=== PATIENT | female | born 1955 | race African-American/Black ===

== ENCOUNTER 2025-05-10 18:11 | Emergency (ER) | payer OTHER, SELFPAY ==
--- NOTE | ~2025-05-10 | XR_ITS ---
EXAMINATION: XR foot LT min 3V DATE: 05/10/2025 19:54 INDICATION: Trauma 2 days ago. TECHNIQUE: 4 views were obtained. COMPARISON: None. FINDINGS: Acute transversely oriented fracture of the proximal fifth metatarsal bone. No other acute bony lesions of the foot are seen. 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 IMPRESSION: 1. Acute fracture of the proximal fifth metatarsal. 2. 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 Reviewed, dictated and finalized at location T. GN ENGINEERING TECHNICIAN
--- OUTSIDE RECORDS SUMMARY | 2025-05-10 18:26 | XMS_ITS | Clinical Summary ---
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 Gender Identity Not on file Sexual Orientation Not on file Plan of Treatment Health Maintenance Due Date Last Done Comments Hepatitis C Virus (HCV) Screening 1955 TdaP Immunization 1955 Cologuard 11/24/2000 Colonoscopy 11/24/2000 Colorectal Cancer Screening 11/24/2000 Immunochemical Fecal Occult Blood 11/24/2000 Pneumococcal Immunization (5 0+ years) (1 of 1 - PCV) 11/24/2005 Zoster Immunization (1 of 2) 11/24/2005 Influenza Immunization (#1) 2025 SARS-COV-2 Immunization (2 - season) 2025 06/20/2020 Respiratory Syncytial Virus (RSV) Immunization (Adult) (1 - 1-dose 75+ series) 11/24/2030 Hepatitis B Immunization Aged Out No longer eligible based on patient's age to complete this topic Human Papillomavirus (HPV) Immunization Aged Out No longer eligible b ased on patient's age to complete this topic Meningococcal Immunization (ACWY) Aged Out No longer eligible based on patient's age to complete this topic Rotavirus Immunization Aged Out No lo nger eligible based on patient's age to complete this topic
--- OUTSIDE RECORDS SUMMARY | 2025-05-10 18:27 | XMS_ITS | Clinical Summary ---
Author Organization [facility] [employer] Address [address] [place] [address] Care Team Providers Care Ratchet Setter Name Role Phone Unavailable Primary Care Provider Unavailabl e Source Comments [facility] [employer],non-owned Affiliates and Associated Physician Practices is amultiple site organization consisting of ambulatory clinics and hospital sitesin [place], [place], [place] and [place]. This disclosure is being madepursuant to the Care Everywhere program and may not contain all information available regarding this patient. Last updated 18.[facility] [employer] Allergies Active Allergy Reactions Criticality Noted Date Comments Penicillins Other,Rash Medium Reaction: rash, , Reaction: Unknown, , , Reaction: Rash, Medications * Be aware that medications may not be up to date on this document. Alwaysverify current medications with the patient. amLODIPine (NORVASC) 10 MG tablet Take 10 mg by mouth once daily 09/04/2018 Active hydroCHLOROthia zide (HYDRODIURIL) 25 MG tablet 25 mg 11/10/2017 Active latanoprost (XALATAN) 0.005 % ophthalmic solution 0.005 % 09/05/2010 Active lisinopril (PRINIVIL;ZESTR IL) 5 MG tablet TAKE ONE TABLET BY MOUTH ONCE DAILY 08/27/2018 Active lancets test one time a day 07/31/2016 Active metFORMIN (GLUCOPHAGE) 500 MG tablet Take 500 mg by mouth 2 times daily 09/10/2017 Active traMADol (ULTRAM) 50 MG tablet Take 50-100 mg by mouth 07/12/2018 Active fluticasone propionate (FLONASE) 50 MCG/ACT nasal spray [place] 2 sprays into each nostril once daily 1 bottles 09/13/2018 Active Social History Tobacco Use Types Packs/Day Years Used Date Smoking Tobacco: Former Smokeless Tobacco: Never Comments Unknown Sex and Gender Information Value Date Recorded Sex Assigned at Not on file 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 Gender Identity Not on file Sexual Orientation Not on file Last Filed Vital Signs Vital Sign Reading Time Taken Comments Blood Pressure 136/90 09/13/2018 5:23 PM CDT Pulse 84 09/13/2018 5:23 PM CDT Temperature 37.2 C (99 F) 09/13/2018 5:23 PM CDT Respiratory Rate - - Oxygen Saturation 96% 09/13/2018 5:23 PM CDT Inhaled Oxygen Concentration - - Weight 79.4 kg (175 lb) 09/13/2018 5:23 PM CDT Height 163.8 cm (5' 4.5) 09/13/2018 5:23 PM CDT Body Mass Index 29.57 09/13/2018 5:23 PM CDT Plan of Treatment Health Maintenance Due Date Last Done Comments BONE DENSITY TESTING 1955 COLOGUARD (AGES 45-75) - COL ON CA SCREENING 1955 COLON MONITORING 1955 COLONOSCOPY - COLON CA SCREENING 1955 CT COLONOGRAPHY - COLON CA SCREENING 1955 Colorectal Cancer Screening 1955 FIT - COLON CA SCREENING 1955 FLEX SIG - COLON CA SCREENING 1955 LIPID TESTING 1955 MAMMOGRAM 1955 HEPATITIS C SCREENING 11/20/1973 DTAP/TDAP/TD VACCINES (1 - Tdap) 11/24/1974 PNEUMOCOCCAL VACCINE 50+ (1 of 1 - PCV) 11/24/2005 ZOSTER VACCINE (1 of 2) 11/24/2005 SCREENING FOR DIABETES 09/13/2018 DEPRESSION SCREENING 06/21/2024 COVID-19 VACCINE (1 - 2024-2 6 season) 2025 INFLUENZA VACCINE (#1) 2025 Respiratory Syncytial Virus (RSV) Vaccine Pt: or over 60 yrs (1 - 1-dose 75+ series) 11/24/2030 HEPATITIS B VACCINE Aged Out No longe r eligible based on patient's age to complete this topic HIB VACCINE Aged Out No longer eligi ble based on patient's age to complete this topic HPV VACCINE Aged Out No longer eligi ble based on patient's age to complete this topic MENINGOCOCCAL (Group B) VACC INE SHARED DECISION-MAKING Aged Out No longer eligibl e based on patient's age to complete this topic MENINGOCOCCAL GROUPS A/C/Y/W VACCINE Aged Out No longer eligible b ased on patient's age to complete this topic Insurance [employer]
--- OUTSIDE RECORDS SUMMARY | 2025-05-10 18:27 | XMS_ITS | Encounter Summary ---
Author Organization [facility] Address [address] [place] [address] Phone Care Team Providers Care Turkey Farmer Name Role Phone Berta Roth MD Primary Care Provider Encounter Details Date Type Department Care Team (Late st Contact Info) Description 09/16/2017 Orders Only [facility] ProviderSeng MD [address] [place] [id number] Social History Tobacco Use Types Packs/Day Years Used Date Smoking Tobacco: Heavy Smoker Smokeless Tobacco: Never Comments:Smoking History Pac ks/day: 10 Cigarettes Alcohol Use Standard Drinks/Week Comments Yes 0 (1 standard drink = 0.6 oz pur e alcohol) Comments Unknown Sex and Gender Information Value Date Recorded Sex Assigned at Not on file 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 us Historical Provider LAB CYTOLOGY ORDERABLES F inal Result documented in this encounter Visit Diagnoses Not on filedocumented in this encounter Additional Health Concerns Infection Onset Date Last Indicated Resolved Time COVID: Suspected 06/08/2022 06/08/2022 06/08/2022 7:25 PM GENERAL FOREMAN Influenza, adult 06/08/2022 06/08/2022 06/15/2022 3:06 AM GENERAL FOREMAN COVID: Suspected 03/31/2023 03/31/2023 03/31/2023 10:29 AM CDT COVID: Suspected 03/31/2023 03/31/2023 03/31/2023 6:55 PM CDT documented as of this encounter Care Teams Turkey Farmer Relationship Specialty Start Date End Date Berta Roth MD PCP - General 09/18/16 documented as of this encounter
--- OUTSIDE RECORDS SUMMARY | 2025-05-10 18:27 | XMS_ITS | Clinical Summary ---
Author Organization [facility] al Address [address] [place] [address] Care Team Providers Care Trailer Rental Clerk Name Role Phone Berta Roth MD Primary Care Provider Allergies Active Allergy Reactions Criticality Noted Date Comments Iodinated Contrast Media Stomach upset High 07/31/2020 Other Unknown 09/19/2020 Penicillin G Unknown 08/24/2019 Penicillins Rash,Other (See comments) Reaction: rash, , Reaction: Unknown, , , Reaction: Rash, Medications pantoprazole DR (PROTONIX) 20 mg EC tablet Take 1 tablet (20 mg total) by mouth daily 06/03/20 20 Active dorzolamide-henrietta loL (COSOPT) 22.3-6.8 mg/mL ophthalmic solution 07/29/19 22 Active Vagifem 10 mcg tabletIndication s:Postmenopausal atrophic vaginitis,Dyspar eunia in female INSERT 1 TABLET INTO THE VAGINA 2 TIMES A WEEK. 24 tablet 3 10/29/19 24 Active lisinopriL (PRINIVIL,ZESTRI L) 20 mg tablet TAKE 1 TABLET BY MOUTH EVERY DAY 90 tablet 2 07/04/19 25 Active polyethylene glycol-electroly nicolasa 420 gram solution TAKE DIRECTED BY OFFICE 07/11/19 25 Active traMADoL (ULTRAM) 50 mg tablet Take 1-2 tablets (50-100 mg total) by mouth every 8 (eight) hours as needed for pain 90 tablet 07/20/19 25 Active amLODIPine (NORVASC) 10 mg tabletIndication s:Benign hypertension TAKE 1 TABLET BY MOUTH EVERY DAY 100 tablet 1 07/22/19 25 Active fluvastatin (LESCOL) 20 mg capsule Take 1 capsule (20 mg total) by mouth every other day 45 capsule 3 08/11/19 25 026 Active semaglutide (OZEMPIC) 2 mg/dose (8 mg/3 mL) pen injector injectionIndicat ions:type 2 diabetes mellitus Inject 2 mg under the skin once a week 3 mL 11 11/08/19 25 Active valACYclovir (VALTREX) 500 mg tablet Take 1 tablet (500 mg total) by mouth daily 90 tablet 3 12/22/19 25 Active clobetasoL (TEMOVATE) 0.05 % ointmentIndicati ons:Lichen sclerosus Apply topically 2 (two) times a day Apply to vulva 1-2 times per week 45 g 3 12/22/19 25 Active ezetimibe (ZETIA) 10 mg tablet TAKE 1 TABLET BY MOUTH EVERY DAY 90 tablet 1 01/30/20 25 Active potassium chloride ER 20 mEq CR tablet TAKE 1 TABLET BY MOUTH EVERY DAY 90 tablet 03/06/20 25 Active metoprolol XL (TOPROL-XL) 25 mg extended release tablet TAKE 1 TABLET (25 MG TOTAL) BY MOUTH DAILY. 100 tablet 1 03/23/20 25 Active hydroCHLOROthiaz clari (HYDRODIURIL) 25 mg tablet TAKE 1 TABLET BY MOUTH EVERY DAY 90 tablet 1 03/28/20 25 Active metFORMIN (GLUCOPHAGE) 500 mg tabletIndication s:Type 2 diabetes mellitus without complication, without long-term current use of insulin (HCC) TAKE 1 TABLET BY MOUTH TWICE A DAY WITH MEALS 180 tablet 1 04/12/20 25 Active metFORMIN (GLUCOPHAGE) 500 mg tabletIndication s:Type 2 diabetes mellitus without complication, without long-term current use of insulin (HCC) TAKE 1 TABLET BY MOUTH TWICE A DAY WITH MEALS 180 tablet 1 11/22/19 24 025 Discontinued Active Problems Problem Noted Date Diagnosed Date Exposure to COVID-19 virus 03/31/2023 Assessment & Plan (03/31/2023 10:27 AM CDT): Rapid covid negative PCR pending Advised to retest if symptomatic Trichomonosis 08/26/2021 Assessment & Plan (08/26/2021 12:41 PM HEARING INSTRUMENT SPECIALIST): Will send vaginal swab for testing, will notify pt of results as available Benign paroxysmal positional vertigo 07/29/2021 Chronic chest wall pain 07/29/2021 Multiple nodules of lung 07/29/2021 Thoracic aortic aneurysm (TAA) 07/29/2021 Lichen sclerosus 07/29/2021 Assessment & Plan (08/26/2021 12:41 PM HEARING INSTRUMENT SPECIALIST): Advised starting lotrisone at hs x 14d Assessment & Plan (07/29/2021 10:56 AM HEARING INSTRUMENT SPECIALIST): Will have her start lotrisone cream bid x 5 days She will use an emollient/barrier cream after applying the lotrisone - vaseline or crisco She will f/u in the next 2w if not improving, sooner if worsening Symptomatic menopausal or female climacteric sta nicolasa 07/29/2021 Assessment & Plan (07/29/2021 10:55 AM HEARING INSTRUMENT SPECIALIST): Will have imaging dept contact her regarding scheduling a dexa Vaginal itching 07/29/2021 TMJ arthralgia 09/22/2020 Primary open angle glaucoma 08/25/2016 Type 2 diabetes mellitus without complication Overview (07/29/2021): Type 2 diabetes mellitus Adiposity 11/30/2014 Overview (09/25/2016): Obesity Benign hypertension 11/04/2013 Overview (09/24/2016): BENIGN HYPERTENSION Assessment & Plan (01/15/2020 1:51 PM CDT): Stable. Continue present management. Tinnitus 11/04/2013 Overview (09/25/2016): Tinnitus Glaucoma 11/04/2013 Overview (09/25/2016): Glaucoma Degeneration of intervertebral disc of lumbar re gion 07/13/2013 Overview (09/25/2016): Degenerative disc disease, lumbar Back pain with radiation 12/15/2012 Overview (09/25/2016): Back pain with radiation Lumbago 10/21/2012 Hyperlipidemia 08/08/2012 Overview (09/23/2016): HYPERLIPIDEMIA NEC/NOS Assessment & Plan (01/15/2020 1:52 PM CDT): Uncontrolled. Encouraged compliance with statin. Change in voice 08/08/2012 Overview (09/25/2016): Hoarseness or changing voice Cervical radiculopathy 08/08/2012 Overview (09/25/2016): Cervical radiculopathy Former tobacco use 08/08/2012 Overview (09/25/2016): Tobacco use Assessment & Plan (01/15/2020 1:52 PM CDT): Encouraged continue cessation of smoking. Disorder of lung 07/25/2012 Resolved Problems Problem Noted Date Diagnosed Date Resolved Date Bacterial vaginosis 08/26/2021 09/29/19 Assessment & Plan (08/26/2021 12:41 PM HEARING INSTRUMENT SPECIALIST): Will send vaginal swab for testing, will notify pt of results as available Left ear pain 10/18/2020 10/18/2020 Dizziness and giddiness 10/18/2020 05/1 12/2021 Benign essential hypertension 11/30/2014 09/28/2022 Overview (09/25/2016): Benign essential hypertension Spinal stenosis of lumbar region 07/13/2013 04/11/2021 Overview (09/24/2016): Foraminal stenosis of lumbosacral region Assessment & Plan (01/15/2020 1:51 PM CDT): Stable. Uses tramadol as needed without any significant adverse effects. Abnormal computed tomography scan 07/13/2013 09/28/2022 Overview (09/24/2016): Abnormal CT scan of lung Hypertension 10/09/2011 09/28/2022 Smokes tobacco daily 10/09/2011 020 Overview (09/30/2017): Description: 06/10/12 Immunizations Immunization Administration Dates Next Due Influenza, Unspecified 07/20/2024(Deferred: Sienna ent Refused) Moderna SARS-CoV-2 Monovalen t Vaccination (12+ YRS) 06/20/2020 Pneumococcal Conjugate Pcv20 07/19/2023 Pneumococcal Polysaccharide PPV23 07/20/2024(Def erred: Patient Refused) Tdap 01/15/2020 Surgical History Surgery Date Site/Laterality Comments EPIDURAL INJECTION LUMBOSACRAL 01/02/2013 N/A COLONOSCOPY BREAST BIOPSY 09/25/2022 Left Medical History Medical History Date Comments Smokes tobacco daily 10/09/2011 Description : 06/10/12 Allergic rhinitis Diabetes Hypertension HL (hearing loss) Dizziness Family History Medical History Relation Name Comments Other Brother 2 Alive and well; Coronary artery disease Father Aundrea nary artery disease; Cause of : Coronary artery disease Heart disease Father Heart disease; Hypertension Father Hypertension; Diabetes Mother Diabetes mellit us; Diabetes type II Mother Diabetes -T ype 2; Hypertension Mother Hypertension; Other Sister 2 Breast cancer Neg Hx Ovarian cancer Neg Hx Uterine cancer Neg Hx Relation Name Status Comments Brother 1 Alive Brother 2 Father (Age 73) Mother Sister 1 Alive Sister 2 ruptured aortic aneurysm Social History Tobacco Use Types Packs/Day Years Used Date Smoking Tobacco: Former Cigarettes 0.1 40 1 979 - 2019 Smokeless Tobacco: Never Tobacco Cessation:Counseling Given: Not Answered Comments:Smoking History Packs/day: 10 Cigarettes Alcohol Use Standard Drinks/Week Comments Yes 0 (1 standard drink = 0.6 oz pur e alcohol) AUDIT-C Answer Date Recorded Q1: How often do you have a drink containing alc ohol? 2-4 times a month 07/11/2021 Q2: How many drinks containi ng alcohol do you have on a typical day when you are drinking? 1 or 2 07/11/2021 Q3: How often do you have si x or more drinks on one occasion? Never 07/11/2021 PHQ-2 Answer Date Recorded PHQ-2 Total Score (If total score is 3 or more points, staff should administer the PHQ-9) 0 07/20/2024 Comments No Sex and Gender Information Value Date Recorded Sex Assigned at Not on file Legal Sex Female 9:05 PM HEARING INSTRUMENT SPECIALIST Gender Identity Not on file Sexual Orientation Not on file Obstetrics History Para Term AB IAB SAB Ectopic Multiple Livin g Live Births 1 1 1 1 Date Outcome GA Total Labor Labor//3rd Weight Sex Type Anes PTL Eli A1 A5 Name Clin Term Last Filed Vital Signs Vital Sign Reading Time Taken Comments Blood Pressure 106/62 02/02/2025 10:26 AM CDT Pulse 79 02/02/2025 10:26 AM CDT Temperature 36.9 C (98.5 F) 02/02/2025 10:26 AM CDT Respiratory Rate 20 02/02/2025 10:26 AM CDT Oxygen Saturation 96% 02/02/2025 10:26 AM CDT Inhaled Oxygen Concentration - - Weight 78.7 kg (173 lb 6.4 oz) 02/02/2025 10:26 AM CDT Height 152.4 cm (5') 02/02/2025 10:26 AM CDT Body Mass Index 33.86 02/02/2025 10:26 AM CDT Plan of Treatment Scheduled Procedures Name Priority Associated Diagnoses Date/Ti me COLONOSCOPY Colon cancer screening Health Maintenance Due Date Last Done Comments Zoster Vaccine (1 of 2) 11/24/2005 Lung Cancer Screening 05/31/2019 05/31/2018 Foot Exam 06/22/2024 06/22/2023, 02/0 11/2022, 07/27/2022, Additional history exists Dilated Eye Exam 07/29/2024 07/29/2023, 01/2024, 05/13/2022 Covid-19 Vaccine (2024-2 6 season) 2025 09/11/2021, 08/01/2020, 06/20/2020 Albumin Creatinine Ratio, Urine 07/20/2025 07/20/2024, 01/17/2024, 07/11/2021, Additional history exists Depression Screening 07/20/2025 07/20/2024, 07/19/2023, 12/19/2021, Additional history exists Fall Risk Assessment 07/20/2025 07/20/2024, 07/19/2023, 12/19/2021, Additional history exists Hemoglobin A1C 08/05/2025 02/02/2025, 10/20, 07/20/2024, Additional history exists Breast Cancer Screening-Mammogram 10/04/2025 10/04/2024, 09/30/2023, 08/28/2022, Additional history exists Well Visit 65+ 12/21/2025 12/21/2024, 06/23, 07/26/2023, Additional history exists Lipid Panel 02/02/2026 02/02/2025, 06/23, 07/19/2023, Additional history exists eGFR 02/02/2026 02/02/2025, 06/23, 07/19/2023, Additional history exists Osteoporosis Screening-Bone Density Scan 02/02/2027 02/02/2025, 12/19/2021, 03/06/2016 DTaP/Tdap/Td Vaccine (2 - Td or Tdap) 01/14/2030 01/15/2020 Colon Cancer Screening-Colonoscopy 01/19/2030 01/20/2020 Colon Cancer Screening-CT Colonography Discontinued 01/20/2020, 01/20/2020 Colon Cancer Screening-DNA Stool Discontinued 01/20/20 20, 01/20/2020 Colon Cancer Screening-FIT Discontinued 01/20/2020, Colon Cancer Screening-Sigmoidoscopy Discontinued 01/20/2020, 01/20/2020 Hepatitis C Screening Completed 03/05/2020, 017 Pneumococcal vaccine 65+ Completed 07/19/2023 Hepatitis B Screening Completed 07/20/2024 Influenza Vaccine Discontinued Procedures Procedure Name Priority Date/Time Associated Diagnosis Comments DEXA AXIAL SKELETON BONE DENSITY 1 OR MORE SITES Schedule Routine, Read Routine (OP Routine) 02/02/2025 11:38 AM CDT Postmenopause EGFR Routine 02/02/2025 11:08 AM CDT Benign hypertension HEMOGLOBIN A1C Routine 02/02/2025 11:08 AM CDT Type 2 diabetes mellitus without complication, without long-term current use of insulin (HCC) LIPID PANEL Routine 02/02/2025 11:08 AM CDT Pure hypercholesterolemia SCREENING MAMMOGRAM BILATERAL W PAR[place] Schedule Routine, Read Routine (OP Routine) 10/04/2024 2:17 PM CDT Screening mammogram for breast cancer ALBUMIN CREATININE RATIO, URINE Routine 07/20/2024 10:22 AM HEARING INSTRUMENT SPECIALIST Annual physical exam Type 2 diabetes mellitus without complication, without long-term current use of insulin (HCC) Mixed hyperlipidemia DIABETES EYE EXAM Routine 07/29/2023 HEPATITIS C ANTIBODY Routine 03/05/2020 11:09 AM CDT COLONOSCOPY Routine 01/20/[address] COLONOGRAPHY Routine 01/20/2020 HM DIABETES FOOT EXAM Routine 12/20/2018 CT LUNG CANCER SCREENING Routine 05/31/2018 12:00 AM HEARING INSTRUMENT SPECIALIST from Last 3 Months or Most Recently Relevant to Health Maintenance Results * Dexa Axial Skeleton Bone Density 1 or 2 Site (02/02/2025 11:38 AM CDT) Anatomical Region Laterality Modality Body N/A Digital Radiogra phy 02/02/2025 11:4 7 AM CDT Impressions 02/03/2025 11:32 AM CDT 1. The bone mineral density of the lumbar spine is mildly decreased. There has been a statistically significant decrease in bone mineral density since the baseline examination of 12/19/2021. 2. The bone mineral density of the left femoral neck is normal. There has been no significant change in bone mineral density since the baseline examination of 12/19/2021. 3. The bone mineral density of the left total hip is normal. There has been a statistically significant increase in bone mineral density since the baseline examination of 12/19/2021. 4. Overall, the above findings are diagnostic of low bone mass (osteopenia) by WHO criteria. 5. Based on the FRAX fracture risk model, the 10-year probability for major osteoporotic fracture is 3.1% and that for hip fracture is 0.2%. This 10-year fracture risk estimate was calculated using the risk factors noted in the history above, along with the femoral neck bone density. FRAX is intended to help guide treatment decisions in men over age 50 and postmenopausal women with low bone mass (osteopenia). The National Osteoporosis Foundation (NOF) recommends that FDA-approved medical therapies be considered in postmenopausal women and men age 50 years and older with osteoporosis and those with low bone mass whose 10-year fracture probability by FRAX is >= 20% for major osteoporotic fracture or >= 3% for hip fracture. However, all treatment decisions require clinical judgment and consideration of individual patient factors, including patient preferences, comorbidities, previous drug use, risk factors not captured in the FRAX model (e.g., frailty, falls, vitamin D deficiency, increased bone turnover, interval significant decline in bone density) and possible under- or overestimation of fracture risk by FRAX. General comments regarding interpretation of bone density measurements: A) In children, premenopausal woman and males under age 50 not at increased risk for fractures only Z-scores, not T-scores are used to indicate risk. A Z-score above -2.0 is defined as within the expected range for age and Z-score at or less than -2.0 is below the expected range for age. A Z-score below the expected range for age in a patient with recent fractures and/or chronic corticosteroid treatment is consistent with a diagnosis of osteoporosis. B) In post menopausal women and males over 50, comparison of the measured bone mineral density with the average value in young normal subjects (the T-score) has been found to be useful in assessing fracture risk. Fracture risk approximately doubles for each 1.0 standard deviation (SD) in individual's hip or spine bone mineral density is below the average value of young normal subjects. The World Health Organization (WHO) has defined T-scores of -1.0 to -2.5 as diagnostic of low bone mass (OSTEOPENIA), and T-scores of -2.5 or lower to be diagnostic of OSTEOPOROSIS, based on the site of lowest bone density. Note that there will be a change in reporting format and reference databases as patients move from the younger population (group A) to the older population (group B) The National Osteoporosis Foundation (www.nof.org) recommends adequate intake of calcium and vitamin D and regular weight-bearing exercise in all patients. They recommend pharmacologic treatment in postmenopausal women and men age 50 and older presenting with any of the followin) Osteoporosis, after appropriate evaluation to exclude secondary causes. 2) A hip or vertebral (clinical or radiographic) fracture, regardless of the bone density. 3) Low bone mass (Osteopenia) and one or more of: other prior fractures, secondary causes associated with high risk of fracture (such as glucocorticoid use or total immobilization), or computed high risk of fracture (10-yr probability of hip fracture >= 3% or a 10-yr probability of any major osteoporosis-related fracture >= 20% based on the [place]adapted WHO algorithm), available at http://www.shef.ac.uk/FRAX). Dictated by: Francisca Prescott M.D. The radiology attending physician has personally reviewed this study, and had reviewed and/or edited this written report and agrees with it. Electronically signed by: Shanel Muse M.D. Narrative 02/03/2025 11:32 AM CDT BONE DENSITOMETRY OF THE SPINE AND HIP DATE OF STUDY: 02/02/2025 HISTORY: 69-year-old postmenopausal woman with prior smoking history being evaluated for osteoporosis. She is not being treated with bone antiresorptive medication. Evaluate bone mineral density. Additional risk factors for fracture: none. FINDINGS (SPINE): The bone mineral density of L1, L2, L3 was assessed by dual-energy x-ray absorptiometry. The average bone mineral density within this region is 0.897 gm/sq-cm. This is 0.2 standard deviations above the mean of the average bone mineral density for age- and gender-matched subjects (the Z-score). It is 1.1 standard deviations below the mean peak bone mineral density in young adults (the T-score). FINDINGS (FEMORAL NECK): The bone mineral density of the left femoral neck was assessed by dual-energy x-ray absorptiometry. The average bone mineral density within the femoral neck region is 0.829 gm/sq-cm. This is 0.5 standard deviations above the mean of the average bone mineral density for age- and gender-matched subjects (the Z-score). It is 0.2 standard deviations below the mean peak bone mineral density in young adults (the T-score). FINDINGS (TOTAL HIP): The bone mineral density of the left hip was assessed by dual-energy x-ray absorptiometry. The average bone mineral density within the total hip region is 1.028 gm/sq-cm. This is 1.1 standard deviations above the mean of the average bone mineral density for age- and gender-matched subjects (the Z-score). It is 0.7 standard deviations above the mean peak bone mineral density in young adults (the T-score). SUMMARY OF CURRENT RESULTS: Region BMD T-score Z-score AP Spine (L1, L2, L3) 0.897 -1.1 0.2 Femoral Neck (Left) 0.829 -0.2 0.5 Total Hip (Left) 1.028 0.7 1.1 COMPARISON WITH PREVIOUS RESULTS Region Age BMD T-score BMD Change BMD Change Exam Date g/cm2 vs Baseline vs Previous AP Spine (L1-L3) 02/02/2025 69 0.897 -1.1 -2.6%* -2.6%* 12/19/2021 66 0.921 -0.9 Femoral Neck(Left) 02/02/2025 69 0.829 -0.2 2.0% 2.0% 12/19/2021 66 0.813 -0.3 Total Hip(Left) 02/02/2025 69 1.028 0.7 4.2%* 4.2%* 12/19/2021 66 0.987 0.4 *Denotes significance at 95% confidence level Procedure Note Shanel Muse MD - 02/03/2025 BONE DENSITOMETRY OF THE SPINE AND HIP DATE OF STUDY: 02/02/2025 HISTORY: 69-year-old postmenopausal woman with prior smoking history being evaluated for osteoporosis. She is not being treated with bone antiresorptive medication. Evaluate bone mineral density. Additional risk factors for fracture: none. FINDINGS (SPINE): The bone mineral density of L1, L2, L3 was assessed by dual-energy x-ray absorptiometry. The average bone mineral density within this region is 0.897 gm/sq-cm. This is 0.2 standard deviations above the mean of the average bone mineral density for age- and gender-matched subjects (the Z-score). It is 1.1 standard deviations below the mean peak bone mineral density in young adults (the T-score). FINDINGS (FEMORAL NECK): The bone mineral density of the left femoral neck was assessed by dual-energy x-ray absorptiometry. The average bone mineral density within the femoral neck region is 0.829 gm/sq-cm. This is 0.5 standard deviations above the mean of the average bone mineral density for age- and gender-matched subjects (the Z-score). It is 0.2 standard deviations below the mean peak bone mineral density in young adults (the T-score). FINDINGS (TOTAL HIP): The bone mineral density of the left hip was assessed by dual-energy x-ray absorptiometry. The average bone mineral density within the total hip region is 1.028 gm/sq-cm. This is 1.1 standard deviations above the mean of the average bone mineral density for age- and gender-matched subjects (the Z-score). It is 0.7 standard deviations above the mean peak bone mineral density in young adults (the T-score). SUMMARY OF CURRENT RESULTS: Region BMD T-score Z-score AP Spine (L1, L2, L3) 0.897 -1.1 0.2 Femoral Neck (Left) 0.829 -0.2 0.5 Total Hip (Left) 1.028 0.7 1.1 COMPARISON WITH PREVIOUS RESULTS Region Age BMD T-score BMD Change BMD Change Exam Date g/cm2 vs Baseline vs Previous AP Spine (L1-L3) 02/02/2025 69 0.897 -1.1 -2.6%* -2.6%* 12/19/2021 66 0.921 -0.9 Femoral Neck(Left) 02/02/2025 69 0.829 -0.2 2.0% 2.0% 12/19/2021 66 0.813 -0.3 Total Hip(Left) 02/02/2025 69 1.028 0.7 4.2%* 4.2%* 12/19/2021 66 0.987 0.4 *Denotes significance at 95% confidence level IMPRESSION: 1. The bone mineral density of the lumbar spine is mildly decreased. There has been a statistically significant decrease in bone mineral density since the baseline examination of 12/19/2021. 2. The bone mineral density of the left femoral neck is normal. There has been no significant change in bone mineral density since the baseline examination of 12/19/2021. 3. The bone mineral density of the left total hip is normal. There has been a statistically significant increase in bone mineral density since the baseline examination of 12/19/2021. 4. Overall, the above findings are diagnostic of low bone mass (osteopenia) by WHO criteria. 5. Based on the FRAX fracture risk model, the 10-year probability for major osteoporotic fracture is 3.1% and that for hip fracture is 0.2%. This 10-year fracture risk estimate was calculated using the risk factors noted in the history above, along with the femoral neck bone density. FRAX is intended to help guide treatment decisions in men over age 50 and postmenopausal women with low bone mass (osteopenia). The National Osteoporosis Foundation (NOF) recommends that FDA-approved medical therapies be considered in postmenopausal women and men age 50 years and older with osteoporosis and those with low bone mass whose 10-year fracture probability by FRAX is >= 20% for major osteoporotic fracture or >= 3% for hip fracture. However, all treatment decisions require clinical judgment and consideration of individual patient factors, including patient preferences, comorbidities, previous drug use, risk factors not captured in the FRAX model (e.g., frailty, falls, vitamin D deficiency, increased bone turnover, interval significant decline in bone density) and possible under- or overestimation of fracture risk by FRAX. General comments regarding interpretation of bone density measurements: A) In children, premenopausal woman and males under age 50 not at increased risk for fractures only Z-scores, not T-scores are used to indicate risk. A Z-score above -2.0 is defined as within the expected range for age and Z-score at or less than -2.0 is below the expected range for age. A Z-score below the expected range for age in a patient with recent fractures and/or chronic corticosteroid treatment is consistent with a diagnosis of osteoporosis. B) In post menopausal women and males over 50, comparison of the measured bone mineral density with the average value in young normal subjects (the T-score) has been found to be useful in assessing fracture risk. Fracture risk approximately doubles for each 1.0 standard deviation (SD) in individual's hip or spine bone mineral density is below the average value of young normal subjects. The World Health Organization (WHO) has defined T-scores of -1.0 to -2.5 as diagnostic of low bone mass (OSTEOPENIA), and T-scores of -2.5 or lower to be diagnostic of OSTEOPOROSIS, based on the site of lowest bone density. Note that there will be a change in reporting format and reference databases as patients move from the younger population (group A) to the older population (group B) The National Osteoporosis Foundation (www.nof.org) recommends adequate intake of calcium and vitamin D and regular weight-bearing exercise in all patients. They recommend pharmacologic treatment in postmenopausal women and men age 50 and older presenting with any of the followin) Osteoporosis, after appropriate evaluation to exclude secondary causes. 2) A hip or vertebral (clinical or radiographic) fracture, regardless of the bone density. 3) Low bone mass (Osteopenia) and one or more of: other prior fractures, secondary causes associated with high risk of fracture (such as glucocorticoid use or total immobilization), or computed high risk of fracture (10-yr probability of hip fracture >= 3% or a 10-yr probability of any major osteoporosis-related fracture >= 20% based on the [place].-adapted WHO algorithm), available at http://www.shef.ac.uk/FRAX). Dictated by: Francisca Prescott M.D. The radiology attending physician has personally reviewed this study, and had reviewed and/or edited this written report and agrees with it. Electronically signed by: Shanel Muse M.D. us Chelsi Alfonso MD IMG DXA PROCEDURES Final R esult * eGFR (02/02/2025 11:08 AM CDT) eGFR 63 >=60 mL/min/1. 73 m2 Comment: Interpretive Data Reference Interval Normal >/= 90 mL/min/1.73m2 Mildly decreased* 60 - 89 mL/min/1.73m2 Mildly to moderately decreased 45 - 59 mL/min/1.73m2 Moderately to severely decreased 30 - 44 mL/min/1.73m2 Severely decreased 15 - 29 mL/min/1.73m2 Kidney Failure < 15 mL/min/1.73m2 *Relative to young adult level Estimated glomerular filtration rate is determined by the 2020 CKD-EPI equation recommended by the National Kidney Foundation (A Unifying Approach to GFR Estimation: Recommendations of the NKF-ASK Task Force on Reassessing the Inclusion of Race in Diagnosing Kidney Disease, JASN 2020). The CKD-EPI equation should not be used for patients with unstable renal function and has not been validated in children and those over 70. Current interpretive data was last reviewed 2021. Blood 02/02/2025 11:0 8 AM CDT 02/02/2025 1:58 PM CDT us Jody Euceda NP LAB BLOOD ORDERABLES Final Resu lt [facility] Department [place] [address] * (ABNORMAL) Hemoglobin A1c (02/02/2025 11:08 AM CDT) Hgb A1C 5.8(H) 4.0 - 5.6 % Estimated Average Glucose 120 mg/dL [facility] Comment: The ADA recommends reporting an estimated Average Glucose (eAG) with all Hemoglobin A1c results using the equation derived from a study of 507 normal and diabetic adults. Minority populations were underrepresented and children were not included. (Diabetes Care 2020; 43(S1): S66-S76). The eAG is not equivalent to a fasting glucose. Blood 02/02/2025 11:0 8 AM CDT 02/02/2025 1:51 PM CDT us Jody Euceda NP LAB BLOOD ORDERABLES Final Resu lt [facility] Department [place] [address] * (ABNORMAL) Lipid panel (02/02/2025 11:08 AM CDT) Cholesterol 209(H) 30 - 199 mg/dL Comment: Interpretive Data Ages < or = 19 years Acceptable: <170 mg/dL Borderline high: 170-199 mg/dL High: >or= 200 mg/dL Ages > or = 20 years Desirable: <200 mg/dL Borderline high: 200-239 mg/dL High: >or= 240 mg/dL Literature References: 1. Expert Panel on Integrated Guidelines for Cardiovascular Health and Risk Reduction in Children and Adolescents. Pediatrics 2011;128:S213 2. NCEP Expert Panel. Circulation 2004;110:227 Current Interpretive Data was last revised on 2018. Triglycerides 55 <=149 mg/dL [facility] Comment: Interpretive Data Ages < or = 9 years Acceptable: <75 mg/dL Borderline high: 75-99 mg/dL High: >or= 100 mg/dL Ages 10 to 20 years Acceptable: <90 mg/dL Borderline high: 90-129 mg/dL High: >or= 130 mg/dL Ages > or = 20 years Desirable: <150 mg/dL Borderline high: 150-199 mg/dL High: 200-499 mg/dL Very high: >or= 499 mg/dL Literature References: 1. Expert Panel on Integrated Guidelines for Cardiovascular Health and Risk Reduction in Children and Adolescents. Pediatrics 2011;128:S213 2. NCEP Expert Panel. Circulation 2004;110:227 Current Interpretive Data was last revised on 2018. HDL 72 >=40 mg/dL [facility] Comment: Interpretive Data Ages < or = 19 years Acceptable: >45 mg/dL Borderline low: 40-45 mg/dL Low: <40 mg/dL Ages > or = 20 years Desirable: >or= 60 mg/dL Low: <40 mg/dL Literature References: 1. Expert Panel on Integrated Guidelines for Cardiovascular Health and Risk Reduction in Children and Adolescents. Pediatrics 2011;128:S213 2. NCEP Expert Panel. Circulation 2004;110:227 Current Interpretive Data was last revised on 2018. LDL, calculated 127 <=129 mg/dL [facility] Comment: Interpretive Data Ages < or = 19 years Acceptable: <110 mg/dL Borderline high: 110-129 mg/dL High: >or= 130 mg/dL Ages > or = 20 years Optimal: <100 mg/dL Near optimal: 100-129 mg/dL Borderline high: 130-159 mg/dL High: >160 mg/dL Calculated using the Christo LDL-C estimating equation. This equation was implemented on 2024. Prior to this date LDL-C was estimated using the Friedewald equation. Literature References: 1. Expert Panel on Integrated Guidelines for Cardiovascular Health and Risk Reduction in Children and Adolescents. Pediatrics 2011;128:S213 2. NCEP Expert Panel. Circulation 2004;110:227 3. Christo Brian et al. DEISY Cardiol. 2019October 19;5(5):540-548. doi: 10.1001/jamacardio.2020.0013 Current Interpretive Data was last revised on 2024. Non-HDL Cholesterol 137 mg/dL [facility] Comment: Interpretive Data Ages < or = 19 years Acceptable: <120 mg/dL Borderline high: 120-144 mg/dL High: >145 mg/dL Ages > or = 20 years When triglycerides are >200 mg/dL, Non-HDL cholesterol is a secondary target of therapy with treatment goals that are 30 mg/dL greater than the LDL cholesterol target. Literature References: 1. Expert Panel on Integrated Guidelines for Cardiovascular Health and Risk Reduction in Children and Adolescents. Pediatrics 2011;128:S213 2. NCEP Expert Panel. Circulation 2004;110:227 Current Interpretive Data was last revised on 2018. Chol/HDL ratio 3 [facility] Blood 02/02/2025 11:0 8 AM CDT 02/02/2025 1:51 PM CDT Jody Euceda NP LAB BLOOD ORDERABLES Final Resu lt [facility] Department [place] [address] * Screening Mammogram Bilateral W Parish (10/04/2024 2:17 PM CDT) Anatomical Region Laterality Modality Breast Bilateral Mammography Impressions 10/04/2024 2:29 PM CDT Bilateral No evidence of malignancy in either breast. There are benign calcifications in both breasts.There is a biopsy marker clip in the left breast. OVERALL BI-RADS FINAL ASSESSMENT: 2 - Benign RECOMMENDATION: Recommend bilateral annual screening mammography. Narrative 10/04/2024 2:29 PM CDT EXAMINATION: Screening Mammogram Bilateral W Parish: 10/04/2024 COMPARISON: Relevant prior studies available at the time of interpretation were reviewed. TECHNIQUE: Mammography was performed with 2D and digital breast tomosynthesis (DBT) images. CAD was utilized. BREAST PARENCHYMAL COMPOSITION: There are scattered areas of fibroglandular density. FINDINGS: Bilateral There is no suspicious mass, calcification, or architectural distortion in either breast. Chelsi Alfonso MD IMG MAMMO PROCEDURES Final Result * Albumin Creatinine Ratio, Urine (07/20/2024 10:22 AM HEARING INSTRUMENT SPECIALIST) Albumin Ur <12.0 mg/L Comment: Interpretive Data No reference range established. Current interpretive data was last revised 2018. Creatinine Ur 276.0 mg/dL [facility] Comment: Interpretive Data No reference range established. Current interpretive data was last revised 2018. Albumin Creatinine Ratio, Ur <4 1 - 29 mg/g [facility] Urine 07/20/2024 10:2 2 AM HEARING INSTRUMENT SPECIALIST 07/20/2024 1:11 PM HEARING INSTRUMENT SPECIALIST Berta Roth MD LAB URINE ORDERABLES F inal Result Performing Organization Address City/[facility]/ZIP Co de Phone Number [facility] Department [place] [address] * DIABETES EYE EXAM (07/29/2023) 07/29/2023 Result [facility] Historical Provider HEALTH MAINTENANCE Final Result * Hepatitis C antibody (03/05/2020 11:09 AM CDT) Hep C Ab NON-REACTI VE NON-REACT HUY [facility] SIGNAL TO CUT-OFF 0.09 <1.00 [facility] Comment: HCV antibody was non-reactive. There is no laboratory evidence of HCV infection. In most cases, no further action is required. However, if recent HCV exposure is suspected, a test for HCV RNA (test code 43991) is suggested. For additional information please refer to http://education.Chubbies Shorts/faq/KJE01x9 (This link is being provided for informational/ educational purposes only.) 03/05/2020 11:0 9 AM CDT 03/05/2020 11:13 AM CDT Result [facility] Stef Davis MD LAB MICROBIOLOGY - [facility] Final Result [email or web address] [address] [place] [address] * CT COLONOGRAPHY (01/20/2020) Result [facility] Berta Roth MD HEALTH MAINTENANCE Jl adam Result - Final * Colonoscopy (01/20/2020) Anatomical Region Laterality Modality Other Result [facility] Stef Davis MD ENDOSCOPY PROCEDURES Final Resu lt * DIABETES FOOT EXAM (12/20/2018) Pathologist [facility] Diabetic Foot Exam Normal SCRIBED DM FOOT SITES SENSED 5 Result [facility] Historical Provider HEALTH MAINTENANCE Final Result * CT Lung Cancer Screening (05/31/2018 12:00 AM HEARING INSTRUMENT SPECIALIST) Anatomical Region Laterality Modality Chest N/A Computed Tomogra phy 05/31/2018 Impressions 06/01/2018 9:19 AM HEARING INSTRUMENT SPECIALIST 1.Mild pulmonary emphysema. 2.Scattered tiny pulmonary nodules measuring up to 2 mm. 3.Slight aneurysmal dilatation of the ascending thoracic aorta measuring 4.1 cm. 4.Dense coronary artery atherosclerotic calcifications. 5.Mild mosaic attenuation in the lung bases, nonspecific but likely related to mild small airways disease and air trapping. Lung-RADS Category 2S: Finding other than a pulmonary nodule which is potentially clinically significant. Recommendation: Continue annual screening LDCT in 12 months. THIS IS AN ELECTRONICALLY VERIFIED FINAL REPORT 06/01/2018 9:16 AM - Electronically signed by Jhonathan Ramos M.D. T: Report ID: [id number] Reading Location: [place] [address] [EOD] Narrative 06/01/2018 9:19 AM HEARING INSTRUMENT SPECIALIST EXAM DESCRIPTION: CT Lung Screen REASON FOR STUDY: Screening CT of the chest in a current smoker with a 44 pack year smoking history. Additional history: None. TECHNIQUE: Low dose CT scan of the chest was performed without intravenous contrast using helical scanning technique. The exam extends from the lung apices through the lung bases. Automatic exposure control was used as a dose optimization technique. NOTE: This study was performed for the specific purposes of lung cancer screening and is not an alternative to diagnostic chest CT. RADIATION DOSE: CT dose index volume (CTDIvol) = 2.66 mGy COMPARISON: Chest CT dated 11/26/2004 FINDINGS: SMOKING RELATED LUNG DISEASE: Mild centrilobular pulmonary emphysema. LUNG NODULES: 2 mm peripheral right upper lobe pulmonary nodule (axial image 38). 2 mm nodule right lung apex slightly laterally (axial image 23). 2 mm left apical nodule posterolaterally (axial image 25). OTHER: Large central airways are patent. No confluent pulmonary opacity. Mild mosaic attenuation in the lung bases, nonspecific but likely related to mild small airways disease and air trapping. The ascending thoracic aorta is minimally aneurysmal measuring 4.1 cm in transverse dimension, slightly increased since 2004. Dense coronary artery atherosclerotic calcifications. Heart size is normal without pericardial effusion. No lymphadenopathy. Limited images of the upper abdomen demonstrate no acute or significant abnormalities. Bone Windows: No suspicious lytic or blastic lesion. Procedure Note Provider, MD Seng - 11/05/2020 EXAM DESCRIPTION: CT Lung Screen REASON FOR STUDY: Screening CT of the chest in a current smoker with a 44 pack year smoking history. Additional history: None. TECHNIQUE: Low dose CT scan of the chest was performed withoutintravenous contrast using helical scanning technique. The exam extends from the lung apices through the lung bases. Automatic exposure control was used as adose optimization technique. NOTE: This study was performed for the specific purposes of lung cancer screening and is not an alternative to diagnostic chest CT. RADIATION DOSE: CT dose index volume (CTDIvol) = 2.66 mGy COMPARISON: Chest CT dated 11/26/2004 FINDINGS: SMOKING RELATED LUNG DISEASE: Mild centrilobular pulmonary emphysema. LUNG NODULES: 2 mm peripheral right upper lobe pulmonary nodule (axialimage 38). 2 mm nodule right lung apex slightly laterally (axial image 23). 2mm left apical nodule posterolaterally (axial image 25). OTHER: Large central airways are patent. No confluent pulmonary opacity. Mild mosaic attenuation in the lung bases, nonspecific but likely relatedto mild small airways disease and air trapping. The ascending thoracic aortais minimally aneurysmal measuring 4.1 cm in transverse dimension, slightly increased since 2004. Dense coronary artery atheroscleroticcalcifications. Heart size is normal without pericardial effusion. No lymphadenopathy. Limited images of the upper abdomen demonstrate no acute or significant abnormalities. Bone Windows: No suspicious lytic or blastic lesion. IMPRESSION: 1.Mild pulmonary emphysema. 2.Scattered tiny pulmonary nodules measuring up to 2 mm. 3.Slight aneurysmal dilatation of the ascending thoracic aorta measuring4.1 cm. 4.Dense coronary artery atherosclerotic calcifications. 5.Mild mosaic attenuation in the lung bases, nonspecific but likelyrelated to mild small airways disease and air trapping. Lung-RADS Category 2S: Finding other than a pulmonary nodule which is potentially clinically significant. Recommendation: Continue annual screening LDCT in 12 months. THIS IS AN ELECTRONICALLY VERIFIED FINAL REPORT 06/01/2018 9:16 AM - Electronically signed by Jhonathan Ramos M.D. T: Report ID: [id number] Reading Location: [place] [address] [EOD] us Derek Maloney MD IMG CT PROCEDURES Final R esult from Last 3 Months or Most Recently Relevant to Health Maintenance Insurance [facility] [id number] [facility] [id number] [facility] [id number] Care Teams Trailer Rental Clerk Relationship Specialty Start Date End Date Berta Roth MD PCP - General 09/18/16
--- OUTSIDE RECORDS SUMMARY | 2025-05-10 18:27 | XMS_ITS | Clinical Summary ---
Author Organization [facility] Address [address] [place] [address] Care Team Providers Care Whipped Topping Supervisor Name Role Phone Berta Roth MD Primary Care Provider [phone] Allergies Active Allergy Reactions Criticality Noted Date Comments Iodine Rash Low 12/24/2019 Penicillins Rash Low 06/13/2019 Medications amlodipine 10 MG tablet Take 1 tablet (10 mg total) by mouth daily. 05/23/2019 Active dorzolamide-nicolas olol 22.3-6.8 MG/ML Solution 05/22/2019 Acti ve hydrochlorothia zide 25 MG tablet Take 1 tablet (25 mg total) by mouth daily. 03/22/2019 Active latanoprost 0.005 % ophthalmic solution Place 1 drop into both eyes daily. 09/05/2010 Active metFORMIN 500 MG tablet Take 1 tablet (500 mg total) by mouth 2 (two) times a day. 05/05/2019 Active metoprolol succinate ER 25 MG 24 hr tablet Take 1 tablet (25 mg total) by mouth daily. 06/04/2019 Active traMADol 50 MG tablet Take 2 tablets (100 mg total) by mouth every 8 (eight) hours as needed for Pain. 05/16/2019 Active pantoprazole EC 20 MG tablet 06/27/2021 Active KLOR-CON M20 20 MEQ tablet 05/26/2021 Active ezetimibe (ZETIA) 10 MG tablet 1 tablet (10 mg total). 06/04/2022 Active lisinopril (PRINIVIL) 20 MG tablet Take 1 tablet (20 mg total) by mouth daily. Active VAGIFEM 10 MCG vaginal tablet INSERT 1 TABLET INTO THE VAGINA 2 TIMES A WEEK. 10/29/2023 Active valACYclovir (VALTREX) 500 MG tablet Take 1 tablet (500 mg total) by mouth daily. 01/17/2024 Active OZEMPIC 1 mg/dose injection (PEN) Inject 1 mg into the skin once a week. 02/10/2024 Active Active Problems No known active problems Family History Medical History Relation Comments Heart Attack Father Heart Disease Father Diabetes Mother Hypertension Mother RUPTURED ANEURYSM Sister Relation Status Comments Father Mother Sister Social History Tobacco Use Types Packs/Day Years Used Date Smoking Tobacco: Former Cigarettes Q uit: 06/13/2018 Smokeless Tobacco: Never Alcohol Use Standard Drinks/Week Comments No 0 (1 standard drink = 0.6 oz pur e alcohol) AUDIT-C Answer Date Recorded Frequency of Alcohol Consumption Never 06/13/2019 Average Number of Drinks Not on file 019 Frequency of Binge Drinking Not on file 05/22 Comments No Sex and Gender Information Value Date Recorded Sex Assigned at Not on file Legal Sex Female 7:44 PM CDT Gender Identity Not on file Sexual Orientation Not on file Last Filed Vital Signs Vital Sign Reading Time Taken Comments Blood Pressure 120/72 02/11/2024 12:40 PM CDT Pulse 71 02/11/2024 12:40 PM CDT Temperature 36.8 C (98.2 F) 11/18/2023 9:17 AM CDT Respiratory Rate 16 11/18/2023 9:17 AM CDT Oxygen Saturation 99% 02/11/2024 12:40 PM CDT Inhaled Oxygen Concentration - - Weight 79.1 kg (174 lb 4.8 oz) 02/11/2024 12:40 PM CDT Height 162.6 cm (5' 4) 02/11/2024 12:40 PM CDT Body Mass Index 29.92 02/11/2024 12:40 PM CDT Plan of Treatment Health Maintenance Due Date Last Done Comments Colorectal Cancer Screening Colonoscopy (10 Years) 1955 Hepatitis C 11/24/1973 Zoster Vaccines (1 of 2) 11/24/2005 COVID-19 Vaccine ( season) 2025 09/11/2021, 08/01/2020, 06/20/2020 Influenza Adult (#1) 2025 Mammogram Screening 09/29/2025 09/30/2023, 01/21/2023, 09/07/2022, Additional history exists DTaP, Tdap and Td Vaccines (2 - Td or Tdap) 01/14/2030 01/15/2020 RSV Immunization or 60+ Years (1 - 1-dose 75+ series) 11/24/2030 Dexa Scan (General) Completed 12/19/2021, 12/19/2021, 03/06/2016 Pneumococcal Vaccine: 50+ Years Completed 07/19/2023 Hepatitis A Vaccines Aged Out No long er eligible based on patient's age to complete this topic Meningococcal B Vaccine Aged Out No l onger eligible based on patient's age to complete this topic Meningococcal Vaccine Aged Out No anthony jay eligible based on patient's age to complete this topic RSV Immunizations Under 20 Months Aged Out No longer eligible based on patient's age to complete this topic Insurance [facility] [facility] Care Teams Whipped Topping Supervisor Relationship Specialty Start Date End Date Berta Roth MD PCP - General INTERNAL MEDICINE 06/13/19
--- OUTSIDE RECORDS SUMMARY | 2025-05-10 18:27 | XMS_ITS | Patient Health Record ---
Author Organization [facility] Address [address] [place] [address] Care Team Providers Care Insurance Verification Representative Name Role Phone Omega Taylor Primary Care Provider [phone] Reason For Referral No Information Immunizations Vaccine Route Administration Date Status Comme nts COVID-19 Moderna 1ST IM Intramuscular 06/20/2020 Administered EUA provided. Screening and consent reviewed and signed. Pt tolerated well. COVID-19 Moderna 1ST IM Intramuscular 08/01/2020 Administered EUA date 0. Screening reviewed and consent signed. Patient tolerated well. COVID-19 Moderna Booster IM Intramuscular 09/11/2021 Administered Patient tolerat ed well. Plan Of Treatment No Information Insurance Providers Payer Name Payer Address Payer Phone Subscriber Number Group Number Insured Name Patient Relationship to Insured Coverage Start Date Coverage End Date [facility] [address] [place] [address] [id number] Milly Jin Self - patient is the insured 1
[2025-05-10 19:40] VITALS: BP 160/91; PULSE 59; RESP 14; TEMP 36.7; O2SAT 99
[2025-05-11 00:31] VITALS: BP 153/87; PULSE 63; RESP 15; TEMP 36.6; O2SAT 97
[2025-05-11] MEDS: ACETAMINOPHEN 500 MG TABLET 1000 MG PO (01:04)
[2025-05-11] MEDS: KETOROLAC (*BKC) 60 MG/2 ML VIAL IM (01:05)
--- NOTE | 2025-05-11 01:17 | ED_ITS ---
HPI - General Adult General Chief complaint: Extremity Injury, Lower Stated complaint: fall the other day-left foot pain Time Seen by Provider: 05/10/25 22:39 History of Present Illness HPI narrative: 69-year-old female presenting after a fall. Patient states she fell down her stairs 2 days ago and inverted her left ankle. Reports that she has been walking on it since. She states that she feels mild numbness on the plantar surface of the foot. Denies tingling. Neurovascular intact. Related Data Allergies Allergy/AdvReac Type Severity Reaction Status Date / Time Penicillins Allergy Unknown Unknown Verified 05/10/25 19:46 [facility] Family History Family History (Updated 08/27/16 @ 09:40 by DOCTOR UNKNOWN) Other Diabetes mellitus Family history of congestive heart failure Family history of glaucoma Hypertension Social History Social History Smoking status: Never smoker Alcohol intake: current Exam Narrative: GENERAL: Well-appearing, well-nourished, and in no acute distress. HEAD: Normocephalic, atraumatic. EYES: PERRLA and EOMI. ENT: Nares clear, no rhinorrhea or epistaxis. Mucous membranes moist. Oropharynx without tonsillar hypertrophy exudate or other lesions. Bilateral TMs pearly pickard non-bulging NECK: Supple. No adenopathy or masses. No carotid bruits or JVD CHEST: Clear to auscultation. No respiratory distress. No wheezes rales or rhonchi HEART: Regular rate and rhythm. No murmur heard. Normal peripheral pulses. ABDOMEN: Soft, nontender, nondistended, normal active bowel sounds. EXTREMITIES: Moderate edema and ecchymosis over right ankle. Denies malleolar tenderness. Range of motion and strength limited by edema and pain. Distal pulses intact, sensation intact, good capillary refill. SKIN: Warm, dry, no rash. NEURO: No focal deficits. Alert and oriented x3. PSYCH: Normal mood and affect Course Vital Signs Vital signs: Vital Signs Temperature 98.0 F 05/10/25 19:40 Pulse Rate 59 L 05/10/25 19:40 Respiratory Rate 14 05/10/25 19:40 Blood Pressure 160/91 H 05/10/25 19:40 Pulse Oximetry 99 05/10/25 19:40 Oxygen Delivery Room Air 05/10/25 19:40 Temperature 98.0 F 05/10/25 19:40 Pulse Rate 59 L 05/10/25 19:40 Respiratory Rate 14 05/10/25 19:40 Blood Pressure 160/91 H 05/10/25 19:40 Pulse Oximetry 99 05/10/25 19:40 Oxygen Delivery Room Air 05/10/25 19:40 Medical Decision Making MDM Narrative Medical decision making narrative: 69-year-old female presenting after a fall. Patient states she fell down her stairs 2 days ago and inverted her left ankle. Reports that she has been walking on it since. She states that she feels mild numbness on the plantar surface of the foot. Denies tingling. Neurovascular intact. Imaging demonstrates an acute fracture of the proximal fifth metatarsal. Administered Toradol and Tylenol which improved the patient's pain. Patient's strength and range of motion are limited by pain but maintains intact sensation, motor function, and circulation in the foot. Patient placed in a hard sole postop surgical shoe, given crutches, and instructed to be nonweightbearing. Advised follow-up with Orthopedics. Given reasons to return. Medical Records Medical records reviewed: Yes I reviewed the external patient's medical records. Vital Signs Vital Signs: Vital Signs Temperature 98.0 F 05/10/25 19:40 Pulse Rate 59 L 05/10/25 19:40 Respiratory Rate 14 05/10/25 19:40 Blood Pressure 160/91 H 05/10/25 19:40 Pulse Oximetry 99 05/10/25 19:40 Oxygen Delivery Room Air 05/10/25 19:40 Temperature 98.0 F 05/10/25 19:40 Pulse Rate 59 L 05/10/25 19:40 Respiratory Rate 14 05/10/25 19:40 Blood Pressure 160/91 H 05/10/25 19:40 Pulse Oximetry 99 05/10/25 19:40 Oxygen Delivery Room Air 05/10/25 19:40 Imaging Data Attestation: I personally reviewed and interpreted this imaging study as follows: Radiologist's impression: ITS Impressions Foot X-Ray 05/10/25 20:06 IMPRESSION: 1. Acute fracture of the proximal fifth metatarsal. 2. 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 Discharge Plan Discharge Clinical Impression: Foot fracture Patient Disposition: Home Condition: Stable Instructions: Foot Fracture in Adults (ED) Additional Instructions: Return to the ER if you experience fever, redness and swelling of your extremity, numbness or any other symptoms that are concerning to you Wear surgical shoe and use crutches. No weight on the affected. Ice and elevate extremity. Rest, elevate, ice, and take anti-inflammatories (Aleve, Ibuprofen, Naproxen, etc) or Tylenol as needed for pain. Follow-up with orthopedics as soon as possible. Phone number provided. Follow up with your doctor for any other general concerns. Patient Language: Bulgarian Follow-up/Referrals: Berta Roth [Other] Murray Lugo MD [Physician, Orthopedics]
[2025-05-11 02:23] VITALS: BP 153/87; PULSE 63; RESP 15; TEMP 36.6; O2SAT 97
== END 2025-05-11 02:26 | disposition home or self-care (01) ==
DX: S92.352A Displaced fracture of fifth metatarsal bone, left foot, initial encounter for closed fracture (principal); W10.9XXA Fall (on) (from) unspecified stairs and steps, initial encounter
CPT/HCPCS: 73630; 96372; 99284; A9270; J1885